=== PATIENT | female | born 1945 | race Caucasian/White ===

== ENCOUNTER 2018-06-19 14:21 | Emergency (ER) | END 2018-06-19 16:58 | disposition home or self-care (01) ==

== ENCOUNTER 2018-08-11 19:17 | Emergency (ER) | payer OTHER ==
[~2018-08-11] VITALS: Ht 175.3 cm; Wt 80.0 kg
[~2018-08-11 19:17] MED LIST: ALBU18HF INHALATION; PROM6.2515 PO
[2018-08-11 19:24] VITALS: Ht 175.3 cm; Wt 80.0 kg
[2018-08-11] MEDS ORDERED: SOD CHLORIDE 0.9% 1,000 ML IV STA (20:03)
--- NOTE | 2018-08-11 20:10 | ERD ---
ER Documentation Chief Complaint Chief Complaint BIBA for general weakness, pt has bedbugs HPI This is a 73-year-old female who called EMS for generalized weakness. The patient lives alone and she says that she is unable to get out of bed anymore. Patient spouse was full of trash and there were bed bugs all over her bed, there were pathways on the floor for walking surrounded by a garbage. She says she is feeling dehydrated and has not gotten out of bed much over the past couple of days. She says she has noted to eat or drink in her house. EMS reported there was a lot of stool in her bed, nonbloody. She denies any nausea vomiting diarrhea chest pain cough or recent fever or dysuria ROS All systems reviewed and are negative except as per history of present illness. Medications Home Meds Reported Medications Promethazine Hcl* (Promethazine Hcl* Syrup) 6.25 Mg/5 Ml Syrup, 5 ML PO Q6H PRN for COUGH, ML 06/19/18 Albuterol Sulfate* (Ventolin HFA*) 18 Gm Hfa.aer.ad, 2 PUFF INHALATION Q4H, #1 INHALER 06/19/18 Allergies Allergies: Coded Allergies: No Known Allergy (Unverified , 06/19/18) PMhx/Soc Hx Alcohol Use: No Hx Substance Use: No Hx Tobacco Use: No FmHx Family History: No coronary disease Physical Exam Vitals Vital Signs Date Temp Pulse Resp B/P (MAP) Pulse Ox O2 O2 Flow FiO2 Time Delivery Rate 08/11/18 98.3 110 16 106/60 98 19:24 (75) Physical Exam Const: Well-developed, well-nourished Head: Atraumatic, normocephalic Eyes: Normal Conjunctiva, PERRLA, EOMI, normal sclera, no nystagmus ENT: Normal External Ears, Nose and Mouth, extremely dry mucous membranes. Neck: Full range of motion. No meningismus, no lymphadenopathy. Resp: Clear to auscultation bilaterally, no wheezing, rhonchi, rales Cardio: Regular rate and rhythm, no murmurs, S1 S2 present Abd: Soft, non tender x 4, non distended. Normal bowel sounds, no guarding or rebound, no pulsitile abdominal masses or bruits Skin: Arms, legs, trunk with diffuse scattered excoriations and foul odor with impetigo-deshaun looking crusty lesions with scabs with diffuse pink skin Back: No midline or flank tenderness Ext: No cyanosis, or edema, FROM x 4, normal inspection, neurovascularly intact x 4 Neur: Awake and alert, STR 5/5 x 4, sensation intact x 4, no focal findings, cerebellum intact Psych: Normal Mood and Affect Result Diagram: 08/11/18203408/11/182034 Results 24 hrs Laboratory Tests Test 08/11/18 20:35 White Blood Count 12.9 10^3/ul Red Blood Count 4.16 10^6/ul Hemoglobin 12.7 g/dl Hematocrit 41.6 % Mean Corpuscular Volume 100.0 fl Mean Corpuscular Hemoglobin 30.5 pg Mean Corpuscular Hemoglobin Concent 30.5 g/dl Red Cell Distribution Width 16.0 % Platelet Count 325 10^3/UL Mean Platelet Volume 10.8 fl Immature Granulocytes % 0.800 % Neutrophils % 84.6 % Lymphocytes % 5.3 % Monocytes % 7.9 % Eosinophils % 0.9 % Basophils % 0.5 % Nucleated Red Blood Cells % 0.0 /100WBC Immature Granulocytes # 0.100 10^3/ul Neutrophils # 10.9 10^3/ul Lymphocytes # 0.7 10^3/ul Monocytes # 1.0 10^3/ul Eosinophils # 0.1 10^3/ul Basophils # 0.1 10^3/ul Nucleated Red Blood Cells # 0.0 10^3/ul Sodium Level 147 mmol/L Potassium Level 3.5 mmol/L Chloride Level 109 mmol/L Carbon Dioxide Level 23 mmol/L Anion Gap 15 Blood Urea Nitrogen 29 mg/dl Creatinine 0.97 mg/dl Est Glomerular Filtrat Rate mL/min mL/min Glucose Level 139 mg/dl Calcium Level 9.5 mg/dl Total Bilirubin 0.3 mg/dl Direct Bilirubin 0.00 mg/dl Indirect Bilirubin 0.3 mg/dl Aspartate Amino Transf (AST/SGOT) 43 IU/L Alanine Aminotransferase (ALT/SGPT) 21 IU/L Alkaline Phosphatase 114 IU/L Troponin I < 0.012 ng/ml Total Protein 7.7 g/dl Albumin 3.8 g/dl Globulin 3.90 g/dl Albumin/Globulin Ratio 0.97 Current Medications Medications Dose Sig/Rhonda Start Time Status Last (Trade) Ordered Route PRN Stop Time Admin Dose Reason Admin Sodium 1,000 ml @ Q1H STAT 08/11/18 DC 08/11/18 Chloride 1,000 mls/hr IV 20:03 20:47 08/11/18 21:02 Ertapenem 1 100 ml @ ONCE ONCE 08/11/18 DC 08/11/18 gm/ Sodium 200 mls/hr IVPB 20:30 21:10 Chloride 08/11/18 20:59 Procedures/MDM Ordering MD: BI HERNANDEZ DO Location: E/R Room/Bed: PROCEDURE: XR Chest. CLINICAL INDICATION: Chest pain TECHNIQUE: Frontal chest x-ray was obtained. COMPARISON: None. FINDINGS: The heart is not enlarged. Mediastinum is not widened. No hilar masses seen. Lungs are clear of any infiltrates. There is no effusion or pneumothorax. The osseous structures appear normal. IMPRESSION: No evidence for active cardiopulmonary disease. .Avila Cooney MD, MD Date Time Electronically viewed and signed by .Avila Cooney MD, MD on 08/11/2018 20:56 .A/ CC: BI HERNANDEZ DO [id number] Patient is a [facility] patient will be transferred to their facility. The patient has grave disability and diffuse excoriated lesions to her body that are getting infected in the lower extremities. Patient does not meet [facility] criteria for sepsis I do not feel she septic whatsoever. We will transfer to [facility] for wound care/antibiotic therapy/placement in rehab center etc. Departure Diagnosis: Primary Impression: Grave disability Additional Impressions: Volume depletion Cellulitis Site of cellulitis: extremity Site of cellulitis of extremity: lower extremity Laterality: unspecified laterality Qualified Codes: L03.119 - Cellulitis of unspecified part of limb Condition: Stable BI HERNANDEZ DO Aug 11, 2018 20:10
[2018-08-11] MEDS ORDERED: ERTAPENEM SODIUM 1 GM in SOD CHLORIDE 0.9% 100 ML IVPB ONE (20:30)
[2018-08-12 00:49] VITALS: BP 154/63; PULSE 101; RESP 20
== END 2018-08-12 01:40 | disposition short-term general hospital (02) ==
LOC: E/R 19:17
DX: E05.00 Thyrotoxicosis with diffuse goiter without thyrotoxic crisis or storm (principal); E86.9 Volume depletion, unspecified; L03.119 Cellulitis of unspecified part of limb
CPT/HCPCS: 36415; 71045; 80053; 84484; 85025; 87040; 93005; 96365; 99285; J1335; J7030